=== PATIENT | female | born 1980 | race Caucasian/White ===

== ENCOUNTER 2024-01-30 11:39 | Outpatient (OUT) | payer BC, SELFPAY ==
[2024-01-30 12:09] LABS: Basophils Absolute Auto 0.1 10^3/uL (0.0-0.1); Basophils Percent Auto 0.8 % (0.2-2.0); Eosinophils Absolute Auto 0.1 10^3/uL (0.0-0.7); Eosinophils Percent Auto 1.8 % (0.9-7.0); Hematocrit 36.7 % (36.0-48.0); Hemoglobin 12.8 g/dL (12.0-16.0); Immature Granulocytes Abs Auto 0.02 10^3/uL (0.00-0.03); Immature Granulocytes Pct Auto 0.3 % (0.0-0.5); Lymphocytes Absolute Auto 1.6 10^3/uL (1.2-3.8); Lymphocytes Percent Auto 20.7 % (20.5-60.0); Mean Corpuscular HGB Conc 34.9 g/dL (29.9-35.2); Mean Corpuscular Hemoglobin 31.6 pg (26.7-34.0); Mean Corpuscular Volume 90.6 fL (81.0-99.0); Mean Platelet Volume 9.4 fL (9.5-13.5); Monocytes Absolute Auto 0.5 10^3/uL (0.3-0.8); Monocytes Percent Auto 5.8 % (1.7-12.0); Neutrophils Absolute Auto 5.5 10^3/uL (1.4-6.5); Neutrophils Percent Auto 70.6 % (43.0-75.0); Platelet Count 263 10^3/uL (150-450); Red Blood Count 4.05 10^6/uL (4.20-5.40); Red Cell Distribution Width 12.3 % (11.0-15.0); White Blood Count 7.8 10^3/uL (4.0-11.0)
[2024-01-30 12:46] LABS: Alanine Aminotransferase 25 U/L (14-59); Albumin Globulin Ratio 1.3; Albumin Level 3.7 g/dL (3.4-5.0); Alkaline Phosphatase 69 U/L (46-116); Anion Gap 10.5; Aspartate Amino Transferase 21 U/L (15-37); BUN Creatinine Ratio 17.3; Bilirubin Total 0.7 mg/dL (0.2-1.0); Calcium 9.3 mg/dL (8.5-10.1); Carbon Dioxide 29.1 mmol/L (21.0-32.0); Chloride 103 mmol/L (98-107); Chol HDL Ratio 2.1; Cholesterol 158 mg/dL (<=200); Estimated GFR (African America >60 (>=60); Estimated GFR (Non-African Ame >60 (>=60); Free T3 2.47 pg/mL (2.18-3.98); Globulin 2.9 g/dL; Glucose 82 mg/dL (74-106); HDL Cholesterol 75 mg/dL (40-60); Potassium 3.6 mmol/L (3.5-5.1); Sodium 139 mmol/L (136-145); Thyroid Stimulating Hormone 1.919 uIU/mL (0.358-3.740); Total Protein 6.6 g/dL (6.4-8.2); Triglycerides 40 mg/dL (<=150)
[2024-01-30 12:58] LABS: Estimated Average Glucose 103 mg/dL; Glycohemoglobin A1C 5.2 % (4.5-6.2)
[2024-01-31 11:09] LABS: Insulin 2.6 uIU/mL (2.6-24.9)
== END 2024-01-30 11:40 | disposition home or self-care (01) ==
LOC: LAB 11:40
PROVIDERS: PCP Nurse Practitioner Family; Visit Provider Nurse Practitioner Family
DX: Z00.00 Encounter for general adult medical examination without abnormal findings (principal)
CPT/HCPCS: 36415; 80053; 80061; 82306; 83036; 83525; 83540; 84436; 84443; 84481; 85025

== ENCOUNTER 2025-03-06 10:01 | Outpatient (OUT) | payer BC, SELFPAY ==
--- OUTSIDE RECORDS SUMMARY | 2025-03-06 10:03 | XMS_ITS | Clinical Summary ---
Author Organization [facility] Address [id number] [address] 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 Active Active Problems Problem Noted Date Diagnosed Date Anxiety 01/29/2024 H/O bilateral breast implants 01/29/2024 Overview (01/29/2024): 2014 History of fourth degree perineal laceration 02/2024 Overview (01/29/2024): Pelvic floor therapy ordered 01/29/24 History of cervical cerclage 01/29/2024 Overview (01/29/2024): Pelvic floor therapy ordered 01/29/24 Family History Medical History Relation Name Comments Colon cancer Maternal Grandfather Heart disease Maternal Grandmother Multiple sclerosis Mother Breast cancer Neg Hx Ovarian cancer Neg Hx Pancreatic cancer Neg Hx Prostate cancer Neg Hx Uterine cancer Neg Hx Relation Name Status Comments Maternal Grandfather Maternal Grandmother Mother Social History Tobacco Use Types Packs/Day Years Used Date Smoking Tobacco: Former Cigarettes Q uit: 2000 Alcohol Use Standard Drinks/Week Comments Not Currently 0 (1 standard drink = 0.6 oz pur e alcohol) Rare PHQ-2 Answer Date Recorded Total Score 0 01/29/2024 Childcare Answer Date Recorded Childcare Unknown 03/04/2019 Employment Answer Date Recorded Employment Unknown 03/04/2019 Purpose - Life Answer Date Recorded Purpose and direction in life Unknown Comments No Sex and Gender Information Value Date Recorded Sex Assigned at Not on file Legal Sex Female 3:13 PM EDT Gender Identity Not on file Sexual Orientation Not on file Last Filed Vital Signs Vital Sign Reading Time Taken Comments Blood Pressure 124/78 01/29/2024 1:32 PM EDT Pulse - - Temperature - - Respiratory Rate - - Oxygen Saturation - - Inhaled Oxygen Concentration - - Weight 56.1 kg (123 lb 9.6 oz) 01/29/2024 1:32 P M EDT Height 157.5 cm (5' 2 ) 01/29/2024 1:32 PM EDT Body Mass Index 22.61 01/29/2024 1:32 PM EDT Plan of Treatment Health Maintenance Due Date Last Done Comments COVID-19 Vaccine (2023-2 5 season) 2024 09/26/2021, 02/04/2021, 01/14/2021 Adult BMI Screening 01/28/2025 01/29/2024 Depression Screening 01/28/2025 01/29/2024 Tobacco Screening 01/28/2025 01/29/2024 Influenza Vaccine 05/26/2025 07/30/2023, , 07/14/2021, Additional history exists Pap Smear 01/28/2027 01/29/2024, 050 02/2024, 12/13/2016, Additional history exists DTaP,Tdap and Td Vaccines (2 - Td or Tdap) 01/15/2029 01/15/2019 Medical Devices Not on file Procedures Procedure Name Priority Date/Time Associated Diagnosis Comments HIGH RISK HPV W/STEPAN Routine 01/29/2024 3:08 AM EDT Cervical smear, as part of routine gynecological examination from Last 3 Months or Most Recently Relevant to Health Maintenance Results * High risk HPV w/stepan (01/29/2024 3:08 AM EDT) Hpv specimen type ThinPrep 01/30/2024 3:08 AM EDT [facility] Hpv 16 Negative Negative^N egative 01/30/2024 1:55 PM EDT [facility] Hpv 18 Negative Negative^N egative 01/30/2024 1:55 PM EDT [facility] Other high risk hpv Negative Negative^N egative 01/30/2024 1:55 PM EDT [facility] Comment: HPV types 31,33,35,39,45,52,56,58,59,66 and 68 DNA were undetectable. THINP 01/29/2024 3:08 AM EDT 01/30/2024 3:09 AM EDT us Tracy Gonzáles [employer] LABORER-SALON PROFESSIONAL LAB BLOOD ORDERABLES Fin al Result [facility] [address] [facility] [place] [address] [facility] [address] [place] [address], [address] [place] [address] from Last 3 Months or Most Recently Relevant to Health Maintenance Insurance [employer] Care Teams Arborist Climber Relationship Specialty Start Date End Date Deedee De Leon, [employer] LABORER[employer]AL[employer] PROFESSIONAL [address] [place] [address] PCP - General Family Medicine 01/29/24
--- OUTSIDE RECORDS SUMMARY | 2025-03-06 10:03 | XMS_ITS | Clinical Summary ---
Author Organization [facility] Address [address] [place] [address] Care Team Providers Care Communications Technician Name Role Phone Jacqueline Luis PAYROLL MASTER - STUDENT ACCOUNTS MANAGER Primary Care Prov ider Allergies Active Allergy Reactions Criticality Noted Date Comments Penicillins Anaphylaxis High 05/30/2016 Poison Razia Extract Anaphylaxis High 05/30/2016 Medications Multiple Vitamins-Mineral s (THERAPEUTIC MULTIVITAMIN-MIN ERALS) tablet Take 1 tablet by mouth daily Active Norgestim-Eth Estrad Triphasic 0.18/0.215/0.25 MG-35 MCG TABS Take by mouth Active Lactobacillus (PROBIOTIC ACIDOPHILUS) TABS Take 1 tablet by mouth daily 90 tablet 1 01/18/2018 Active Blood Pressure KIT 1 each by Does not apply route daily 1 kit 01/18/2018 Active buPROPion (WELLBUTRIN) 75 MG tablet Take 1 tablet by mouth 2 times daily 180 tablet 1 01/18/2018 Active Active Problems No known active problems Family History Medical History Relation Name Comments Other Mother High Blood Pressure Sister Relation Name Status Comments Father Alive Mother Alive Sister Alive Social History Tobacco Use Types Packs/Day Years Used Date Smoking Tobacco: Never Smokeless Tobacco: Never Alcohol Use Standard Drinks/Week Comments No 0 (1 standard drink = 0.6 oz pur e alcohol) Comments No Sex and Gender Information Value Date Recorded Sex Assigned at Not on file Legal Sex Female 7:07 PM EST Gender Identity Not on file Sexual Orientation Not on file Last Filed Vital Signs Vital Sign Reading Time Taken Comments Blood Pressure 136/72 01/18/2018 3:20 PM EDT Pulse 64 01/18/2018 3:07 PM EDT Temperature 37 C (98.6 F) 05/30/2016 6:58 PM EDT Respiratory Rate 16 01/18/2018 3:07 PM EDT Oxygen Saturation 99% 01/18/2018 3:07 PM EDT Inhaled Oxygen Concentration - - Weight 50.8 kg (112 lb) 01/18/2018 3:07 PM EDT Height 157.5 cm (5' 2 ) 01/18/2018 3:07 PM EDT Body Mass Index 20.49 01/18/2018 3:07 PM EDT Plan of Treatment Not on file Insurance [id number] [employer] Care Teams Communications Technician Relationship Specialty Start Date End Date Jacqueline Luis APRN - CNP [facility] [address] [phone] PCP - General Nurse Practitioner 10/04/17
--- OUTSIDE RECORDS SUMMARY | 2025-03-06 10:03 | XMS_ITS | Clinical Summary ---
Author Organization [facility] Address [address] [place] [address] Care Team Providers Care Wallpaper Consultant Name Role Phone Unavailable Primary Care Provider Unavailabl e Social History Tobacco Use Types Packs/Day Years Used Date Smoking Tobacco: Never Assessed Comments Unknown Sex and Gender Information Value Date Recorded Sex Assigned at Not on file Legal Sex Female 12:57 PM EDT Gender Identity Not on file Sexual Orientation Not on file Plan of Treatment Health Maintenance Due Date Last Done Comments Anxiety Screening 1997 Depression Screening 1997 HIV Screening 1997 Hepatitis C Screening 1997 DTaP,Tdap,Td Vaccine (1 - Tdap) 1998 Hepatitis B Vaccine (1 of 3 - 19+ 3-dose series) 06/29 Cervical Cancer Screening 2000 Mammogram Screening 2019 Covid-19 Vaccine ( season) 2024 CT Colonography 2024 Cologuard (FIT-DNA) 2024 Colonoscopy 2024 Colorectal Cancer Screening 2024 Diabetes Screening 2024 Fecal Occult Blood 2024 Lipid Screening 2024 Sigmoidoscopy 2024 Influenza Vaccine (Season Ended) 2025 Insurance BLUE CARD PPO OOS Member Subscriber Plan / Payer (Ef fective 2015-Present) Name:Pauline Lilly Relation to Subscriber:Self Name:Pauline Lilly Payer ID:[id number] (NAIC) Type:JAMES Address: [facility] [id number] [place] [id number]
--- OUTSIDE RECORDS SUMMARY | 2025-03-06 10:09 | XMS_ITS | CCD ---
Author Organization [facility] Care Team Providers Care Felling Bucking Supervisor Name Role Phone SAMUEL ABDI Unavailable Unavailable SAMUEL ABDI Unavailable Unavailable NELKOVSKI, CATHY Unavailable Unavailable NELKOVSKI, CATHY Unavailable Unavailable NELKOVSKI, CATHY Unavailable Unavailable HEIDI, DR OLIVIA Dumont Admitting Unavailable HEIDI, DR OLIVIA Dumont Attending Unavailable [facility], DR LOPEZ Primary Care Unavailable HEIDI, DR OLIVIA Dumont Consulting Unavailable ROLL, DR OLIVIA Dumont Admitting Unavailable HEIDI, DR OLIVIA Dumont Attending Unavailable [facility], DR LOPEZ Primary Care Unavailable Yarely Herndon Unavailable Deedee Franklin Unavailable KEN HERNANDEZ Referring Unavailable KEN HERNANDEZ Primary Care Unavailable TRACY ROBERTO Referring Unavailable DEEDEE AGGARWAL Primary Care Unavailable TRACY ROBERTO Referring Unavailable DEEDEE AGGARWAL Primary Care Unavailable Allergies Allergy Classification Reported Allergen(s) Allergy Type Date of Onset Reaction(s) Facility Penicillins (antibiotic) (1 source) Penicillins; Translations: [PENICILLINS] Drug Allergy 7 [facility] (2 sources) Penicillin Drug Allergy 1 [facility] Repository (2 sources) penicillAMINE Drug Allergy anaphylaxis [facility] Other (1 source) Penicillins; Translations: [PENICILLINS] Propensity to adverse reactions to drug (disorder) 7 [facility] Medications Current Medications Medication Drug Class(es) Dates Sig (Normalized) Sig (Original) hydrOXYzine hydrochloride 25 mg oral tablet (1 source) Antihistamine Start: 04-16-2024 take 25 mg by mouth every eight hours Hydroxyzine Hcl Active 25 MG PO Every 8 hours 10 4 April 16, 2024 12:00am LORazepam 0.5 mg oral tablet (1 source) Benzodiazepine take 1 tablet by mouth every twenty-four hours Ativan 0.5 MG 1 tablet at bedtime as needed Orally Once a day Active Multivitamin preparation (1 source) take 1 tablet by mouth once daily Multi Vitamin - 1 tablet Orally Once a day Active predniSONE 50 mg oral tablet (2 sources) Start: 04-16-2024 take 50 mg by mouth once daily Prednisone Active 50 MG PO Daily 3 3 April 16, 2024 12:00am Start: 05-27-2023 take 1 tablet by charlene th every twelve hours predniSONE 20 MG 1 tablet Orally bid for 5 day(s) May, Active sertraline 50 mg oral tablet (1 source) Serotonin Reuptake Inhibitor Start: 04-16-2024 Sertraline Active MG PO April 16, 2024 12:00am triamcinolone acetonide 1 mg/ml topical cream (8 sources) Corticosteroid Start: 04-16-2024 Triamcinolone Acetonide Active 1 APPLIC TOPICAL Twice daily April 16, 2024 12:00am apply a thin layer to the affected areas twice daily. Avoid large surface areas, face, neck and groin. Start: 05-27-2023 Kenalog-40 May, 40 mg Start: 04-12-2023 Kenalog-40 Mar, 80 mg Start: 09-06-2018 KENALOG - 10 m g Aug, 40 mg Start: 03-12-2017 KENALOG - 10 m g Feb, 60 mg Problems Active Problems Problem Classification Problem Date Documented Da te Episodic/Chronic Allergic reactions (2 sources) Allergic contact dermatitis due to plants, except food Episodic Other gastrointestinal disorders (1 source) Fecal smearing; Translations: [Fecal smearing] Onset: 01-29-2024 Episodic Other gastrointestinal disorders (1 source) Abdominal distension (gaseous); Translations: [Abdominal distension (gaseous)] Onset: 01-29-2024 Episodic Other gastrointestinal disorders (1 source) Other constipation; Translations: [Other constipation] Onset: 01-29-2024 Episodic Other screening for suspected conditions (not mental disorders or infectious disease) (1 source) Encounter for screening mammogram for malignant neoplasm of breast; Translations: [Encounter for screening mammogram for malignant neoplasm of breast] Onset: 01-29-2024 Episodic Residual codes; unclassified (1 source) Personal history of other complications of , childbirth and the puerperium; Translations: [Personal history of other complications of , childbirth and the puerperium] Onset: 01-29-2024 Episodic Residual codes; unclassified (1 source) Other specified postprocedural states; Translations: [Other specified postprocedural states] Onset: 01-29-2024 Episodic Screening and history of mental health and substance abuse codes (1 source) Encounter for screening for depression; Translations: [Encounter for screening for depression] Onset: 01-29-2024 Episodic Unclassified (1 source) Annual Exam Onset: 01-29-2024 Past or Other Problems Problem Classification Problem Date Documented Da te Episodic/Chronic Medical examination/evaluation (1 source) Encounter for general adult medical examination without abnormal findings; Translations: [Encounter for general adult medical examination without abnormal findings] Onset: 10-28-2017 Episodic Results Test Name Value Interpretation Reference Range Facility Cytologyon 01-29-2024 Cytology Normal [facility] Comment on above: Result Comment: [facility] [address] [place] [address] Gynecologic Cytology Consultation Patient Name:FREEDOM BRANNON:1980 (Age: 43)Gender:FTaken:4Reported:02/14/2024hysician(s):Tracy Roberto APRN-CNPCopy To: Rec. #:[id number]: #[id number] Final Cytologic Interpretation ThinPrep Pap Test (Cervical): Satisfactory for evaluation. A transformazion zone component is not identified via imaging-assisted review, using [employer] Thin Prep Imaging System, within 22 microscopic schulz of view. NEGATIVE FOR INTRAEPITHELIAL LESION OR MALIGNANCY. joeja/02/14/2024 [facility] [place] [address], License number: [id number]. 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 The Pap test is primarily effective for the diagnosis and prevention of squamous cell carcinoma. Regular screening is critical for prevention. ThinPrep liquid-based slides, which meet the Convex Grinder criteria for automated screening, have been screened by the ThinPrep Imaging System (as of 06/11/07) along with an additional manual rescreening by a layer out plate glass and, if indicated, by a pathologist. HIGH RISK HPV W/Kishor 01-28 HPV 31+33+35+39+45+51+52+ 56+58+59+66+68 DNA ANGIE+probe Ql (Cvx) HPV SPECIMEN TYPE ThinPrep HPV 16 Negative (qualifier value) HPV 18 Negative (qualifier value) OTHER HIGH RISK HPV Negative (qualifier value) HPV types 31,33,35,39,45,52,56,58 ,59,66 and 68 DNA were undetectable. Normal [facility] Comment on above: Performed By: #### 7 1431-1 #### [facility] ([id number]) [address] [facility], [place] [address] [facility] ([id number]) [address] [place] [address] [address] [place] [address] [facility]2018 [facility] [employer] [facility] Telephone ([id number]) THE IS,FREEDOM ([id number]) 1980 FDate Time Provider Department04/10/18 NUSRAT WESTFALL [id number] During your visit today, we recorded the following information about you:Elizabeth Ellsworth 04/10/2018 11:52 AM SignedLeft message to call office. 04/10/2018 11:51 AM. To reschedule appt patienthas scheduled in July w/Dr Westfall.Elizabeth Ellsworth 04/11/2018 11:22 AM SignedOffered patient 05/[address] Westfall and she declined due tochildren starting school 05/17. Patient accepted 06/14 appointment.Elizabeth Roxanna Julien As of Date: 04/10/2018(Not on File)Date Reviewed: Never ReviewedReason for Visit: appt [Other]Problem List As Of Date: 04/10/2018(None)Encount er Number: [id number] Status:Closed by ELIZABETH ELLSWORTH on 04/10/18 Normal [facility] Progress Noteon 01-18-2018 HIM IP Note OR Care Manager Cna Normal [facility] CBCon 10-28-2017 Erythrocyte distribution width Auto Ratio (RBC) 12.1 % Normal 11.8-14.4 [facility] Comment on above: Performed By: #### C BC, CP, LIPR ####[facility] [place] [address] Erythrocytes (RBC) 4.97 10*6/uL Normal 3.95-5.[address] [facility] Comment on above: Performed By: #### C BC, CP, LIPR ####[facility] [place] [address] Erythrocytes (RBC) 0.0 per 100 WBC Normal 0.0 [facility] Comment on above: Result Comment: [facility] [address] [place] [address] Performed By: #### C BC, CP, LIPR ####[facility] [place] [address] Hematocrit (HCT) 45.8 % Normal 36.3-47.1 [facility] Comment on above: Performed By: #### C BC, CP, LIPR ####[facility] [address] [place] [address] Hemoglobin mass conc (Bld) 15.2 g/dL High 11.9-15.1 [facility] Comment on above: Performed By: #### C BC, CP, LIPR ####[address] [place] [address] MCH 30.6 pg Normal 25.2-33.5 [facility] Comment on above: Performed By: #### C BC, CP, LIPR ####[address] [address] MCHC mass conc (RBC) 33.2 g/dL Normal 28.4-34.[address] [facility] Comment on above: Performed By: #### C BC, CP, LIPR ####[address] [address] MCV 92.2 fL Normal 82.6-102.9 [facility] Comment on above: Performed By: #### C BC, CP, LIPR ####[address] [address] Platelet mean volume (PMV) 9.9 fL Normal 8.1-13.5 [facility] Comment on above: Performed By: #### C BC, CP, LIPR ####[address] [address] Platelets 275 10*3/uL Normal 138-453 [facility] Comment on above: Performed By: #### C BC, CP, LIPR ####[address] [address] WBC (Leukocytes) 8.5 10*3/uL Normal 3.5-11.3 [facility] Comment on above: Performed By: #### C BC, CP, LIPR ####[address] [address] Comp Metabolic Profon 2017 (cont.) Normal [facility] Comment on above: Result Comment: Aver age GFR for 30-39 years old: 107 mL/min/1.73sq mChronic Kidney Disease: <60 mL/min/1.73sq mKidney failure: <15 mL/min/1.73sq meGFR calculated using average adult body mass. Additional eGFR calculator available at:[email or web address] [facility] [address] [place] [address] Performed By: #### C BC, CP, LIPR ####[facility] [address] [place] [address] Alanine aminotransferase (ALT) 20 U/L Normal 5-33 [facility] Comment on above: Performed By: #### Jonathan BC, CP, LIPR ####[facility] [address] [place] [address] Albumin 4.3 g/dL Normal 3.5-5.2 [facility] Comment on above: Performed By: #### C BC, CP, LIPR ####[facility] [address] [place] [address] Albumin/Globulin Ratio 1.5 {ratio} Normal 1.0-2.5 [facility] Comment on above: Performed By: #### C BC, CP, LIPR ####[facility] [address] [place] [address] Alkaline Phos 82 U/L Normal 35-104 [facility] Comment on above: Performed By: #### C BC, CP, LIPR ####[facility] [address] [place] [address] Anion gap 13 mmol/L Normal 9-17 [facility] Comment on above: Performed By: #### C BC, CP, LIPR ####[facility] HospitalMoko Social MediaMpcnnbtsnueq4[address] [place] [address] Aspartate aminotransferase (AST) 25 U/L Normal <32 [facility] Comment on above: Performed By: #### C BC CP, LIPR ####[address] [address] Bilirubin Ql (U) 0.98 mg/dL Normal 0.3-1.2 [facility] Comment on above: Performed By: #### C BC CP, LIPR ####[address] [address] Calcium 9.2 mg/dL Normal 8.6-10.4 [facility] Comment on above: Performed By: #### C BC CP, LIPR ####[address] [address] Chloride 101 mmol/L Normal 98-107 [facility] Comment on above: Performed By: #### C BC, CP, LIPR ####[address] [address] CO2 26 mmol/L Normal 20-31 [facility] Comment on above: Performed By: #### C BC CP, LIPR ####[address] [address] Creatinine 0.59 mg/dL Normal 0.50-0.90 [facility] Comment on above: Performed By: #### C BC, CP, LIPR ####[address] [address] eGFR (non-black) mL/min/{1.73_m2} Normal >60 [facility] Comment on above: Performed By: #### C BC, CP, LIPR ####[address] [address] Glucose mass conc 89 mg/dL Normal 70-99 [facility] Comment on above: Performed By: #### C BC, CP, LIPR ####[facility] HospitalMoko Social MediaBwelcavspiju1554 [place] [address] Potassium molar conc 4.1 mmol/L Normal 3.7-5.[address] [facility] Comment on above: Performed By: #### C BC, CP, LIPR ####[facility] HospitalMoko Social MediaAsrergunwzpo[address]61 [place] [address] Protein 7.2 g/dL Normal 6.4-8.3 [facility] Comment on above: Performed By: #### C BC, CP, LIPR ####[facility] [address] [place] [address] Sodium 140 mmol/L Normal 135-144 [facility] Comment on above: Performed By: #### C BC, CP, LIPR ####[facility] [address] [place] [address] Urea nitrogen 18 mg/dL Normal -20 [facility] Comment on above: Performed By: #### C BC, CP, LIPR ####[facility] [address] [place] [address] BUN/CRE Ratio NOT REPORTED Normal - [facility] Comment on above: Performed By: #### C BC, CP, LIPR ####[facility] [address] [place] [address] Staging: NOT REPORTED Normal [facility] Comment on above: Performed By: #### C BC, CP, LIPR ####[facility] [address] [place] [address] Lipid Profileon 10-28-2017 Cholesterol 195 mg/dL Normal <200 [facility] Comment on above: Result Comment: Chol esterol Guidelines: <200 Desirable 200-240 Borderline >240 Undesirable Performed By: #### C BC, CP, LIPR ####[facility] HospitalMoko Social MediaFawmvrslggit[address] [place] [address] Cholesterol to HDL Ratio 2.0 {ratio} Normal <5 [facility] Comment on above: Performed By: #### C EILEEN GREENE, LIPR ####[address] [place] [address] HDL Cholesterol 96 mg/dL Normal >40 [facility] Comment on above: Result Comment: HDL Guidelines: <40 Undesirable 40-59 Borderline >59 Desirable Performed By: #### C EILEEN GREENE, LIPR ####[address] [address] LDL Cholesterol 88 mg/dL Normal 0-130 [facility] Comment on above: Result Comment: LDL Guidelines: <100 Desirable 100-129 Near to/above Desirable 130-159 Borderline >159 UndesirableDirect (measured) LDL and calculated LDL are not interchangeable tests. Performed By: #### C EILEEN GREENE, LIPR ####[address] [address] Triglyceride 57 mg/dL Normal <150 [facility] Comment on above: Result Comment: Trig lyceride Guidelines: <150 Desirable 150- 199 Borderline 200-499 High >499 Very high Based on AHA Guidelines for fasting triglyceride, June 2012.[address] [address] Performed By: #### Jonathan GREENE CP, LIPR ####[address] [address] Cholesterol in VLDL mass conc NOT REPORTED Normal 1-30 [facility] Comment on above: Performed By: #### Jonathan GREENE CP, LIPR ####[address] [address] Vital Signs Date Time Vital Sign Value Performing Clinician Facility 04-16-2024 11:55-0400 Body height 157.48 cm [facility] 04-16-2024 11:55-0400 Body mass index (BMI) [Ratio] 23.1 kg/m2 [facility] 04-16-2024 11:55-0400 Body temperature 97.3 [degF] [facility] 04-16-2024 11:55-0400 Body weight 57.2 kg [facility] 04-16-2024 11:55-0400 Heart rate 67 /min [facility] 04-16-2024 11:55-0400 Respiratory rate 16 /min [facility] 04-16-2024 11:55-0400 SaO2% (BldA) [Mass fraction] 98 % [facility] 05-27-2023 12:40-0400 Body height 157.48 cm Deedee Noemi Other [facility] Other 05-27-2023 12:40-0400 Body mass index (BMI) [Ratio] 22.13 kg/m2 Deedee Noemi Other [facility] Other 05-27-2023 12:40-0400 Body temperature 97.6 [degF] Deedee Noemi Other [facility] Other 05-27-2023 12:40-0400 Body weight 54.89 kg Deedee Delunamond Other [facility] Other 05-27-2023 12:40-0400 Diastolic blood pressure 80 mm[Hg] Deedee Noemi Other [facility] Other 05-27-2023 12:40-0400 SaO2% (BldA) [Mass fraction] 99 % Deedee Noemi Other [facility] Other 05-27-2023 12:40-0400 Systolic blood pressure 129 mm[Hg] Deedee Noemi Other [facility] Other 04-12-2023 09:00-0400 Body height 157.48 cm Yarely Herndon Other [facility] Other 04-12-2023 09:00-0400 Body mass index (BMI) [Ratio] 21.95 kg/m2 Yarely Katrina Other [facility] Other 04-12-2023 09:00-0400 Body temperature 98.5 [degF] Yarely Herndon Other [facility] Other 04-12-2023 09:00-0400 Body weight 54.43 kg Yarely Herndon Other [facility] Other 04-12-2023 09:00-0400 Diastolic blood pressure 82 mm[Hg] Yarely Herndon Other [facility] Other 04-12-2023 09:00-0400 Respiratory rate 16 /min Yarelyshirley Herndon Other [facility] Other 04-12-2023 09:00-0400 SaO2% (BldA) [Mass fraction] 100 % Yarely Herndon Other [facility] Other 04-12-2023 09:00-0400 Systolic blood pressure 128 mm[Hg] Yarely Herndon Other [facility] Other Encounters Encounter Date Encounter Type Care Provider Facility Start: 04-16-2024 End: 04-16-2024 ambulatory [facility] Work Phone: Start: 04-16-2024 End: 04-16-2024 Patient encounter procedure [facility] Work Phone: Start: 01-29-2024 End: 02-24-2024 ambulatory KEN Stephens [facility] Start: 01-29-2024 Encounter for gynecological examination (general) (routine) without abnormal findings KEN [facility] Start: 01-29-2024 End: 01-29-2024 ambulatory TRACY Adan [facility] Start: 01-29-2024 Encounter for gynecological examination (general) (routine) [facility] abnormal [facility] Start: 05-27-2023 End: 05-27-2023 ambulatory Deedee Franklin Other [employer] [facility] [employer] Other Start: 05-27-2023 Office outpatient vi sit 10 minutes Deedee Franklin [facility] [place] Start: 04-12-2023 End: 04-12-2023 ambulatory Yarely Herndon Other [facility] Other Start: 04-12-2023 Office outpatient ne w 20 minutes Yarely Herndon [facility] Start: 01-20-[address] OLIVIA GORDON Facilit y:H1 Start: 08-10-2022 End: 12-17-[address] OLIVIA GORDON Facility: Start: 07-14-2018 End: 07-15-2018 Patient encounter CATHY SUAZOMIMIJess [place] Start: 10-28-2017 End: 10-29-2017 Ambulatory SAMUEL ABDI [facility] Procedures Date Procedure Procedure Detail Performing Clinician Start: 10-28-2017 CBC SAMUEL ABDI Start: 10-28-2017 COMPREHENSIVE METABO LIC PANEL SAMUEL ABDI Start: 10-28-2017 Lipid panel SAMUEL ABDI Counseling Yarely Herndon Other Plan of Treatment Date Care Activity Detail Author [facility] Immunizations Immunization Date Immunization Notes Care Provider Fa russell 01-15-2019 tetanus toxoid, redu ana m diphtheria toxoid, and acellular pertussis vaccine, adsorbed Yarely Herndon Other [facility] Payers Date Payer Category Payer Unknown [id number] 2015 [facility] [id number] 1979 Unknown [id number] 2.16.84 [id number] 1980 Unknown [id number] 2.16.84 [id number] 1980 Unknown [id number] 2.16.84 [id number] 1980 Unknown [id number] 2.16.8 [id number] 1979 Unknown [id number] 2.16.8 [id number] 1980 Unknown [id number] 2.16.8 [id number] 1960 Self-pay Social History Date Type Detail Facility Unknown if ever smoked [facility] Other Sex Assigned At Sex Assigned At Bir th [facility] Other Start: 04-16-2024 Tobacco smoking status NHIS Never smoked tobacco (finding) [facility] Start: 1980 Sex Assigned At Female F [facility] Evaluation note 05-27-2023 Note Date & Type Note Facility 05-27-2023 Evaluation note Encounter Date Diagnosis Assessment Notes May, Poison connie dermatitis (ICD-10 - L23.7) Poison connie allergy home care material was printed Drink plenty fluids, get plenty of rest. Take the prednisone as prescribed until gone starting tomorrow. You may take Benadryl as needed for itching. Wash your bedding every day for the next few days. Follow-up with your family physician if no improvement in 2 to 3 days [facility] Other Evaluation note 04-12-2023 Note Date & Type Note Facility 04-12-2023 Evaluation note Encounter Date Diagnosis Assessment Notes Mar, Contact dermatitis due to poison connie (ICD-10 - L23.7) Discussed with patient rash is consistent with contact dermatitis. Discussed typical duration of contact dermatitis 1 to 3 weeks. Advised steroid will help with inflammation and itching but rash will take time to completely resolve. We will treat with kenalog IM in office. May continue topical calamine or similar. Avoid scratching or picking at areas to avoid secondary infection. Keep areas clean with soap and water. Follow-up with family doctor if not gradually improving over the next 10 days, sooner if significantly worsening or changing appearance. Patient verbalized understanding of treatment plan. [facility] Other Evaluation note Note Date & Type Note Facility Evaluation note No assessment information availa [facility] Work Phone: History general Narrative - Reported Note Date & Type Note Facility History general Narrative - Reported Type Medical History anxiety Medical History hypertension Surgical History C section Surgical History tonsillectomy Surgical History cyst removal Surgical History breast augmentation Hospitalization History see above [facility] Other Summary Purpose Family History Relationship Condition Age at Onset Recorded Date/T erendira mother Multiple sclerosis Unknown Advance Directives Advance Directive Response Recorded Date/ Time Advance Directives No April 16 11:42am Chief Complaint and Reason for Visit Chief Complaint Rash Additional Source Comments INFORMATION SOURCE (unrecogn ized section and content) DATE CREATED AUTHOR 03/15/2018 [facility] DATE CREATED AUTHOR AUTHOR'S ORGANIZ ATION 04/12/2018 [facility] DATE CREATED AUTHOR AUTHOR'S ORGANIZ ATION 08/14/2018 [facility] DATE CREATED AUTHOR AUTHOR'S ORGANIZ ATION 01/03/2023 [facility] DATE CREATED AUTHOR AUTHOR'S ORGANIZ ATION 01/30/2024 [facility] DATE CREATED AUTHOR AUTHOR'S ORGANIZ ATION 02/25/2024 [facility] REASON FOR VISIT (unrecogniz ed section and content) poison connie everywherepoison connie, everywhere Care Teams (unrecognized sec tion and content) Team Status: Active Member Role Status Dates NEELIMA CampbellC Primary Care Provider Active Team Status: Inactive Member Role Status Dates Lala Palacio APRN Attending Provider Active S tart: April 16, 2024 End: April 16, 2024 NUSRAT Campbell Primary Care Provider Active Start: April 16, 2024 End: April 16, 2024 Goals (unrecognized section and content) Goals may be documented in a n alternate section FOR RECORDS PERTAINING TO PATIENTS WHO ARE OR HAVE BEEN ENROLLED IN A CHEMICAL DEPENDENCY/SUBSTANCEABUSE PROGRAM, SOME INFORMATION MAY BE OMITTED. This clinical summary was aggregated from multiple sources. Caution should be exercised in using it in the provision of clinical care. This summary normalizes information from multiple sources, and as a consequence, information in this document may materially change the coding, format and clinical context of patient data. In addition, data may be omitted in some cases. CLINICAL DECISIONS SHOULD BE BASED ON THE PRIMARY CLINICAL RECORDS. [employer] provides no warranty or guarantee of the accuracy or completeness of information in this document.
[2025-03-06 10:23] LABS: Basophils Absolute Auto 0.1 10^3/uL (0.0-0.1); Basophils Percent Auto 0.8 % (0.2-2.0); Eosinophils Absolute Auto 0.3 10^3/uL (0.0-0.7); Eosinophils Percent Auto 5.2 % (0.9-7.0); Hematocrit 39.8 % (36.0-48.0); Immature Granulocytes Abs Auto 0.01 10^3/uL (0.00-0.03); Immature Granulocytes Pct Auto 0.2 % (0.0-0.5); Lymphocytes Absolute Auto 1.5 10^3/uL (1.2-3.8); Lymphocytes Percent Auto 24.3 % (20.5-60.0); Mean Corpuscular HGB Conc 35.2 g/dL (29.9-35.2); Mean Corpuscular Volume 91.1 fL (81.0-99.0); Mean Platelet Volume 9.7 fL (9.5-13.5); Monocytes Absolute Auto 0.4 10^3/uL (0.3-0.8); Monocytes Percent Auto 6.2 % (1.7-12.0); Neutrophils Percent Auto 63.3 % (43.0-75.0); Platelet Count 254 10^3/uL (150-450); Red Blood Count 4.37 10^6/uL (4.20-5.40); Red Cell Distribution Width 12.5 % (11.0-15.0); White Blood Count 6.3 10^3/uL (4.0-11.0)
[2025-03-06 11:31] LABS: Alanine Aminotransferase 32 U/L (14-59); Albumin Level 3.6 g/dL (3.4-5.0); Alkaline Phosphatase 103 U/L (46-116); Anion Gap 10.1; Aspartate Amino Transferase 24 U/L (15-37); Bilirubin Total 0.3 mg/dL (0.2-1.0); Calcium 9.3 mg/dL (8.5-10.1); Carbon Dioxide 29.8 mmol/L (21.0-32.0); Chloride 103 mmol/L (98-107); Chol HDL Ratio 2.3; Cholesterol 152 mg/dL (<=200); Estimated GFR (African America >60 (>=60 mL/min/1.73m^2); Estimated GFR (Non-African Ame >60 (>=60 mL/min/1.73m^2); Free T3 2.02 pg/mL (2.18-3.98); Globulin 3.5 g/dL; Glucose 100 mg/dL (74-106); HDL Cholesterol 67 mg/dL (40-60); Potassium 3.9 mmol/L (3.5-5.1); Sodium 139 mmol/L (136-145); Thyroid Stimulating Hormone 2.492 uIU/mL (0.358-3.740); Total Protein 7.1 g/dL (6.4-8.2); Triglycerides 81 mg/dL (<=150); VLDL CHOLESTEROL 16.2 mg/dL
[2025-03-06 11:35] LABS: BUN Creatinine Ratio 31.3
[2025-03-06 15:17] LABS: Estimated Average Glucose 105 mg/dL; Glycohemoglobin A1C 5.3 % (4.5-6.2)
[2025-03-07 04:07] LABS: Insulin 1.9 uIU/mL (2.6-24.9)
== END 2025-03-06 10:02 | disposition home or self-care (01) ==
LOC: LAB 10:01
PROVIDERS: PCP Nurse Practitioner Family; Visit Provider Nurse Practitioner Family
DX: Z00.00 Encounter for general adult medical examination without abnormal findings (principal)
CPT/HCPCS: 36415; 80053; 80061; 82306; 83036; 83525; 83540; 84436; 84443; 84481; 85025

== ENCOUNTER 2025-03-07 07:38 | Outpatient (OUT) | payer BC, SELFPAY ==
--- OUTSIDE RECORDS SUMMARY | 2025-03-07 07:41 | XMS_ITS | CCD ---
Author Organization [facility] Care Team Providers Care Boom Boss Name Role Phone SAMUEL ABDI Unavailable Unavailable SAMUEL ABDI Unavailable Unavailable NELKOVSKI, CATHY Unavailable Unavailable NELKOVSKI, CATHY Unavailable Unavailable NELKOVSKI, CATHY Unavailable Unavailable HEIDI, DR OLIVIA Dumont Admitting Unavailable HEIDI, DR OLIVIA Dumont Attending Unavailable [facility], DR LOPEZ Primary Care Unavailable HEIDI, DR OLIVIA Dumont Consulting Unavailable [place], DR OLIVIA Dumont Admitting Unavailable HEIDI, DR OLIVIA Dumont Attending Unavailable [facility], DR LOPEZ Primary Care Unavailable Yarely Herndon [...] Repository (2 sources) Penicillin Drug Allergy 1 [facility] Repository (2 sources) penicillAMINE Drug Allergy anaphylaxis youwho Other (1 source) Penicillins; Translations: [PENICILLINS] Propensity [...] Reference Range Facility Cytologyon 01-29-2024 Cytology Normal [facility] Comment on above: Result Comment: [facility] [address] [place] [address] Gynecologic Cytology Consultation Patient Name:FREEDOM BRANNON:1980 (Age: 43)Gender:FTaken:4Reported:02/14/2024hysician(s):Tracy Roberto APRN-CNPCopy To: Rec. #:[id number]: #[id number] Final Cytologic Interpretation ThinPrep Pap Test (Cervical): Satisfactory for evaluation. A transformazion zone component is not identified via imaging-assisted review, using [employer] Thin Prep Imaging System, within 22 microscopic schulz of view. NEGATIVE FOR INTRAEPITHELIAL LESION OR MALIGNANCY. joeja/02/14/2024 [email or web address] [address], License number: [id number]. 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 The Pap test is primarily effective for the diagnosis and prevention of squamous cell carcinoma. Regular screening is critical for prevention. ThinPrep liquid-based slides, which meet the Car [employer] criteria for automated screening, have been screened by the ThinPrep Imaging System (as of 06/11/07) along with an additional manual rescreening by a store mgr and, if indicated, by a pathologist. HIGH RISK HPV W/Kishor 01-28 HPV 31+33+35+39+45+51+52+ 56+58+59+66+68 DNA ANGIE+probe Ql (Cvx) HPV SPECIMEN TYPE ThinPrep HPV 16 Negative (qualifier value) HPV 18 Negative (qualifier value) OTHER HIGH RISK HPV Negative (qualifier value) HPV types 31,33,35,39,45,52,56,58 ,59,66 and 68 DNA were undetectable. Normal [facility] Comment on above: Performed By: #### 7 1431-1 #### [facility] ([id number]) [address] [facility], [place] [address] [facility] ([id number]) [address] [place] [address] [address] [place] [address] [facility] Telephone ([id number]) THE IS,FREEDOM ([id number]) 1980 FDate Time Provider Department04/10/18 NUSRAT WEST[place]ALL [id number] During your visit today, we recorded the [...] List As Of Date: 04/10/2018(None)Encount er Number: [id number] Status:Closed by ELIZABETH ELLSWORTH on 04/10/18 Normal [facility] Progress Noteon 01-18-2018 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 Normal [facility] CBCon 10-28-2017 Erythrocyte distribution width Auto Ratio (RBC) 12.1 % Normal 11.8-14.4 [facility] Comment on above: Performed By: #### C BC, CP, LIPR ####[facility] [place] [address] Erythrocytes (RBC) 4.97 10*6/uL Normal 3.95-5.11 [facility] Comment on above: Performed By: #### C BC, CP, LIPR ####[facility] [place] [address] Erythrocytes (RBC) 0.0 per 100 WBC Normal 0.0 M [facility] Comment on above: Result Comment: [facility] [address] [place] [address] Performed By: #### C BC, CP, LIPR ####[facility] [place] [address] Hematocrit (HCT) 45.8 % Normal 36.3-47.1 [facility] Comment on above: Performed By: #### C BC, CP, LIPR ####[facility] [address] [place] [address] Hemoglobin mass conc (Bld) 15.2 g/dL High 11.9-15.1 [facility] Comment on above: Performed By: #### C BC, CP, LIPR ####[address] [place] [place] [address] MCH 30.6 pg Normal 25.2-33.5 [facility] Comment on above: Performed By: #### C BC, CP, LIPR ####[address] [address] MCHC mass conc (RBC) 33.2 g/dL Normal 28.4-34.8 [facility] Comment on above: Performed By: #### C BC, CP, LIPR ####[address] [address] MCV 92.2 fL Normal 82.6-102.9 [facility] Comment on above: Performed By: #### C BC, CP, LIPR ####[address] [address] Platelet mean volume (PMV) 9.9 fL Normal 8.1-13.5 [facility] Comment on above: Performed By: #### C BC, CP, LIPR ####[address] [address] Platelets 275 10*3/uL Normal 138-453 [facility] Comment on above: Performed By: #### C BC, CP, LIPR ####[address] [address] WBC (Leukocytes) 8.5 10*3/uL Normal 3.5-11.3 [facility] Comment on above: Performed By: #### C BC, CP, LIPR ####[address] [address] Comp Metabolic Profon 2017 (cont.) Normal [facility] Comment on above: Result Comment: Aver age GFR for 30-39 years old: 107 mL/min/1.73sq mChronic Kidney Disease: <60 mL/min/1.73sq mKidney failure: <15 mL/min/1.73sq meGFR calculated using average adult body mass. Additional eGFR calculator available at:[email or web address] [facility] [address] [place] [address] Performed By: #### C BC, CP, LIPR ####[facility] [address] [place] [address] Alanine aminotransferase (ALT) 20 U/L Normal 5-33 [facility] Comment on above: Performed By: #### Jonathan BC, CP, LIPR ####[facility] [address] [place] [address] Albumin 4.3 g/dL Normal 3.5-5.2 [facility] Comment on above: Performed By: #### C BC, CP, LIPR ####[facility] [address] [place] [address] Albumin/Globulin Ratio 1.5 {ratio} Normal 1.0-2.5 [facility] Comment on above: Performed By: #### C BC, CP, LIPR ####[facility] [address] [place] [address] Alkaline Phos 82 U/L Normal 35-104 [facility] Comment on above: Performed By: #### C BC, CP, LIPR ####[facility] [address] [place] [address] Anion gap 13 mmol/L Normal 9-17 [facility] Comment on above: Performed By: #### C BC, CP, LIPR ####[facility] HospitalSeculertJcfzbvvtghxv25[address] [place] [address] Aspartate aminotransferase (AST) 25 U/L Normal <32 [facility] Comment on above: Performed By: #### C BC CP, LIPR ####[address] [address] Bilirubin Ql (U) 0.98 mg/dL Normal 0.3-1.2 [facility] Comment on above: Performed By: #### C BC CP, LIPR ####[address] [address] Calcium 9.2 mg/dL Normal 8.6-10.4 [facility] Comment on above: Performed By: #### C BC CP, LIPR ####[address] [address] Chloride 101 mmol/L Normal 98-107 [facility] Comment on above: Performed By: #### C BC, CP, LIPR ####[address] [address] CO2 26 mmol/L Normal 20-31 [facility] Comment on above: Performed By: #### C BC CP, LIPR ####[address] [address] Creatinine 0.59 mg/dL Normal 0.50-0.90 [facility] Comment on above: Performed By: #### C BC, CP, LIPR ####[address] [address] eGFR (non-black) mL/min/{1.73_m2} Normal >60 [facility] Comment on above: Performed By: #### C BC, CP, LIPR ####[address] [address] Glucose mass conc 89 mg/dL Normal 70-99 [facility] Comment on above: Performed By: #### C BC, CP, LIPR ####[facility] HospitalSeculertVwqfmmksggxn6676 [place] [address] Potassium molar conc 4.1 mmol/L Normal 3.7-5.3 [facility] Comment on above: Performed By: #### C BC, CP, LIPR ####[facility] HospitalSeculertNigbilczxvvb5441 [place] [address] Protein 7.2 g/dL Normal 6.4-8.3 [facility] Comment on above: Performed By: #### C BC, CP, LIPR ####[facility] [address] [place] [address] Sodium 140 mmol/L Normal 135-144 [facility] Comment on above: Performed By: #### C BC, CP, LIPR ####[facility] [address] [place] [address] Urea nitrogen 18 mg/dL Normal -20 [facility] Comment on above: Performed By: #### C BC, CP, LIPR ####[facility] [address] [place] [address] BUN/CRE Ratio NOT REPORTED Normal - [facility] Comment on above: Performed By: #### C BC, CP, LIPR ####[facility] [address] [place] [address] Staging: NOT REPORTED Normal [facility] Comment on above: Performed By: #### C BC, CP, LIPR ####[facility] [address] [place] [address] Lipid Profileon 10-28-2017 Cholesterol 195 mg/dL Normal <200 [facility] Comment on above: Result Comment: Chol esterol Guidelines: <200 Desirable 200-240 Borderline >240 Undesirable Performed By: #### C BC, CP, LIPR ####[facility] HospitalSeculertLzccpjarwykx0786 [place] [address] Cholesterol to HDL Ratio 2.0 {ratio} Normal <5 [facility] Comment on above: Performed By: #### C EILEEN GREENE, LIPR ####[address] [place] [address] HDL Cholesterol 96 mg/dL Normal >40 [facility] Comment on above: Result Comment: HDL Guidelines: <40 Undesirable 40-59 Borderline >59 Desirable Performed By: #### C EILEEN GREENE, LIPR ####[address] [address] LDL Cholesterol 88 mg/dL Normal 0-130 [facility] Comment on above: Result Comment: LDL Guidelines: <100 Desirable 100-129 Near to/above Desirable 130-159 Borderline >159 UndesirableDirect (measured) LDL and calculated LDL are not interchangeable tests. Performed By: #### C EILEEN GREENE, LIPR ####[address] [address] Triglyceride 57 mg/dL Normal <150 [facility] Comment on above: Result Comment: Trig lyceride Guidelines: <150 Desirable 150- 199 Borderline 200-499 High >499 Very high Based on AHA Guidelines for fasting triglyceride, June 2012.[address] [address] Performed By: #### Jonathan GREENE CP, LIPR ####[address] [address] Cholesterol in VLDL mass conc NOT REPORTED Normal 1-30 [facility] Comment on above: Performed By: #### Jonathan GREENE CP, LIPR ####[address] [address] Vital Signs Date Time Vital Sign Value Performing Clinician Facility 04-16-2024 11:55-0400 Body height 157.48 cm [facility] 04-16-2024 11:55-0400 Body mass index (BMI) [Ratio] 23.1 kg/m2 [facility] 04-16-2024 11:55-0400 Body temperature 97.3 [degF] [facility] 04-16-2024 11:55-0400 Body weight 57.2 kg [facility] 04-16-2024 11:55-0400 Heart rate 67 /min [facility] 04-16-2024 11:55-0400 Respiratory rate 16 /min [facility] 04-16-2024 11:55-0400 SaO2% (BldA) [Mass fraction] 98 % [facility] 05-27-2023 12:40-0400 Body height 157.48 cm Deedee Noemi Other you[facility] Other 05-27-2023 12:40-0400 Body mass index (BMI) [Ratio] 22.13 kg/m2 Deedee Noemi Other [facility] Other 05-27-2023 12:40-0400 Body temperature 97.6 [degF] Deedee Noemi Other [facility] Other 05-27-2023 12:40-0400 Body weight 54.89 kg Deedee Delunamond Other youwho Other 05-27-2023 12:40-0400 Diastolic blood pressure 80 mm[Hg] Deedee Noemi Other [facility] Other 05-27-2023 12:40-0400 SaO2% (BldA) [Mass fraction] 99 % Deedee Noemi Other [facility] Other 05-27-2023 12:40-0400 Systolic blood pressure 129 mm[Hg] Deedee Noemi Other [facility] Other 04-12-2023 09:00-0400 Body height 157.48 cm Yarely Herndon Other [facility] Other 04-12-2023 09:00-0400 Body mass index (BMI) [Ratio] 21.95 kg/m2 Yarely Katrina Other [facility] Other 04-12-2023 09:00-0400 Body temperature 98.5 [degF] Yarely Herndon Other [facility] Other 04-12-2023 09:00-0400 Body weight 54.43 kg Yarely Herndon Other [facility] Other 04-12-2023 09:00-0400 Diastolic blood pressure 82 mm[Hg] Yarely Herndon Other [facility] Other 04-12-2023 09:00-0400 Respiratory rate 16 /min Yarelyshirley Herndon Other youwho Other 04-12-2023 09:00-0400 SaO2% (BldA) [Mass fraction] 100 % Yarely Herndon Other [facility] Other 04-12-2023 09:00-0400 Systolic blood pressure 128 mm[Hg] Yarely Herndon Other youwho Other Encounters Encounter Date Encounter Type Care Provider Facility Start: 04-16-2024 End: 04-16-2024 ambulatory [facility] Work Phone: Start: 04-16-2024 End: 04-16-2024 Patient encounter procedure [facility] Work Phone: Start: 01-29-2024 End: 02-24-2024 ambulatory KEN Stephens [facility] Start: 01-29-2024 Encounter for gynecological examination (general) (routine) without abnormal findings KEN [facility] Start: 01-29-2024 End: 01-29-2024 ambulatory TRACY Adan [facility] Start: 01-29-2024 Encounter for gynecological examination (general) (routine) [facility] abnormal [facility] Start: 05-27-2023 End: 05-27-2023 ambulatory Deedee Franklin Other [employer] [facility] [employer] Other Start: 05-27-2023 Office outpatient vi sit 10 minutes Deedee Franklin [facility] Start: 04-12-2023 End: 04-12-2023 ambulatory Yarely Herndon Other [facility] Other Start: 04-12-2023 Office outpatient ne w 20 minutes Yarely Herndon [facility] Start: 01-20-[address] OLIVIA GORDON Facilit y:H1 Start: 08-10-2022 End: 12-17-[address] OLIVIA GORDON Facility: Start: 07-14-2018 End: 07-15-2018 Patient encounter CATHY SUAZOMIMIJess Facility:[facility] Start: 10-28-2017 End: 10-29-2017 Ambulatory SAMUEL ABDI [facility] Procedures Date Procedure Procedure Detail Performing Clinician Start: 10-28-2017 CBC SAMUEL ABDI Start: 10-28-2017 COMPREHENSIVE METABO LIC PANEL SAMUEL ABDI Start: 10-28-2017 Lipid panel SAMUEL ABDI Counseling Yarely Herndon Other Plan of Treatment Date Care Activity Detail Author [facility] Immunizations Immunization Date Immunization Notes Care Provider Fa russell 01-15-2019 tetanus toxoid, redu ana m diphtheria toxoid, and acellular pertussis vaccine, adsorbed Yarely Herndon Other [facility] Payers Date Payer Category Payer Unknown [id number] 2015 [facility] [id number] 1980 Unknown [id number] 2.16.84 [id number] 1980 Unknown [id number] 2.16.84 [id number] 1980 Unknown [id number] 2.16.84 [id number] 1980 Unknown [id number] 2.16.8 [id number] 1980 Unknown [id number] 2.16.8 [id number] 1980 Unknown [id number] 2.16.8 [id number] 1960 Self-pay Social History Date Type Detail Facility Unknown if ever smoked youwho Other Sex Assigned At Sex Assigned At Bir th [facility] Other Start: 04-16-2024 Tobacco smoking status NHIS Never smoked tobacco (finding) [facility] Start: 1980 Sex Assigned At Female F [facility] Evaluation note 05-27-2023 Note Date & Type [...] no improvement in 2 to 3 days [facility] Other Evaluation note 04-12-2023 Note Date & [...] appearance. Patient verbalized understanding of treatment plan. [facility] Other Evaluation note Note Date & Type Note Facility Evaluation note No assessment information availa [facility] Work Phone: History general Narrative - Reported Note Date & Type Note Facility History general Narrative - Reported Type Medical History anxiety Medical History hypertension Surgical History C section Surgical History tonsillectomy Surgical History cyst removal Surgical History breast augmentation Hospitalization History see above [facility] Other Summary Purpose Family History Relationship Condition Age at Onset Recorded Date/T erendira mother Multiple sclerosis Unknown Advance Directives Advance Directive Response Recorded Date/ Time Advance Directives No April 16 11:42am Chief Complaint and Reason for Visit Chief Complaint Rash Additional Source Comments INFORMATION SOURCE (unrecogn ized section and content) DATE CREATED AUTHOR 03/15/2018 [facility] DATE CREATED AUTHOR AUTHOR'S ORGANIZ ATION 04/12/2018 [facility] DATE CREATED AUTHOR AUTHOR'S ORGANIZ ATION 08/14/2018 [facility] DATE CREATED AUTHOR AUTHOR'S ORGANIZ ATION 01/03/2023 [facility] DATE CREATED AUTHOR AUTHOR'S ORGANIZ ATION 01/30/2024 [facility] DATE CREATED AUTHOR AUTHOR'S ORGANIZ ATION 02/25/2024 [facility] REASON FOR VISIT (unrecogniz ed section and [...] BE BASED ON THE PRIMARY CLINICAL RECORDS. [employer] provides no warranty or guarantee of the accuracy or completeness of information in this document.
--- NOTE | 2025-03-07 08:11 | MM_ITS ---
Patient Name: FREEDOM BRANNON MR#: [id number] : 1980 Exam Date: 03/07/2025 Ordering Doctor: NADIA AGGARWAL CNP RADIOLOGY REPORT PROCEDURE: MM TOMOSYNTHESIS SCREENING BI COMPARISON: None. INDICATIONS: Screening Calculator Name NCI Breast Cancer Risk Assessment Tool 5 Year Breast Cancer Risk 0.80% Lifetime Breast Cancer Risk 9.70% Personal Breast Cancer No Personal Ovarian Cancer No Treatments None Family Cancers Grandfather-maternal with colon cancer at age ~70. LOCATION: [facility] BREAST COMPOSITION: There are scattered areas of fibroglandular density. FINDINGS: DIAGNOSTIC CATEGORY 1--NEGATIVE. RIGHT BREAST: No significant suspicious finding. LEFT BREAST: No significant suspicious finding. RECOMMENDATIONS: ROUTINE MAMMOGRAM AND CLINICAL EVALUATION IN 12 MONTHS. PLEASE NOTE: A NORMAL MAMMOGRAM DOES NOT EXCLUDE THE POSSIBILITY OF BREAST CANCER. A CLINICALLY SUSPICIOUS PALPABLE LUMP SHOULD BE BIOPSIED. Dictated by: Ike Lira DO on 03/10/2025 at 15:34 Approved by: Ike Lira DO on 03/10/2025 at 15:35
== END 2025-03-07 07:39 | disposition home or self-care (01) ==
LOC: LAB 07:40 → MAMMO 07:42
PROVIDERS: PCP Nurse Practitioner Family; Visit Provider Nurse Practitioner Family
DX: Z12.31 Encounter for screening mammogram for malignant neoplasm of breast (principal); Z80.0 Family history of malignant neoplasm of digestive organs
CPT/HCPCS: 77063; 77067